=== PATIENT | female | born 1970 | race Caucasian/White ===

== ENCOUNTER → 2020-04-22 | Outpatient (CLI) | payer OTHER | END | disposition home or self-care (01) | LOC: LABWHC1 11:25 | PROVIDERS: ATTEND Family Medicine | DX: Z03.818 Encounter for observation for suspected exposure to other biological agents ruled out (principal) | CPT/HCPCS: U0003; C9803 ==

== ENCOUNTER 2024-07-10 12:26 | Emergency (ER) | payer OTHER ==
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
--- NOTE | 2024-07-10 13:16 | XR ---
EXAMINATION TYPE: XR hand complete 3 views LT DATE OF EXAM: 07/10/2024 1:02 PM COMPARISON: None CLINICAL INDICATION: Female, 54 years old with history of fall, pain over thumb, , FINDINGS: A couple densities adjacent to the ulnar styloid process measuring up to 3 mm could reflect sequela o f old injury or accessory ossicles. No acute fracture, subluxation, dislocation is seen. IMPRESSION: 1. No acute osseous abnormality seen. 2. A couple ossicles adjacent to the ulnar styloid process could represent accessory ossicles or sequ james of old injury. Clinically correlate. [facility] Enrrique Catalan, Workstation: [facility], 07/10/2024 1:13 PM
[2024-07-10 14:19] VITALS: BP 130/76; PULSE 90; RESP 18; TEMP 98
== END 2024-07-10 14:19 | disposition home or self-care (01) ==
LOC: EC 12:26
DX: M25.532 Pain in left wrist (principal); F17.200 Nicotine dependence, unspecified, uncomplicated; Z88.5 Allergy status to narcotic agent; Z88.8 Allergy status to other drugs, medicaments and biological substances; W01.0XXA Fall on same level from slipping, tripping and stumbling without subsequent striking against object, initial encounter; Y99.0 Civilian activity done for income or pay
CPT/HCPCS: 29125; 99283